=== PATIENT | male | born 1955 | race Caucasian/White ===

== ENCOUNTER 2017-11-19 13:09 | Inpatient (IN) | payer OTHER ==
[2017-11-19] MEDS: SOD CHLORIDE 0.9% 500 ML IV (13:17)
[2017-11-19] MEDS: ASPIRIN 81 MG TAB PO (13:17)
[2017-11-19 13:22] LABS: ADD MAN DIFF? NO
[2017-11-19] MEDS: HEPARIN 1000 UNITS/ML 10 ML INJ IV (13:23)
[2017-11-19 13:26] LABS: BASOPHIL # 0.1 10^3/ul (0.0-0.1); BASOPHILS % 0.6 % (0.0-2.0); EOSINOPHILS # 0.1 10^3/ul (0.0-0.5); EOSINOPHILS % 1.1 % (0.0-7.0); HEMOGLOBIN 13.5 g/dl (14.0-18.0); LYMPHOCYTES # 1.7 10^3/ul (0.8-2.9); MEAN CORPUSCULAR HEMOGLOBIN 31.2 pg (29.0-33.0); MEAN CORPUSCULAR HGB CONC 33.8 g/dl (32.0-37.0); MEAN CORPUSCULAR VOLUME 92.4 fl (82.0-101.0); MEAN PLATELET VOLUME 8.8 fl (7.4-10.4); MONOCYTE # 0.7 10^3/ul (0.3-0.9); MONOCYTES % 5.6 % (0.0-11.0); NEUTROPHIL # 9.5 10^3/ul (1.6-7.5); NEUTROPHILS % 78.1 % (39.0-77.0); PLATELET COUNT 358 10^3/UL (140-415); RED BLOOD COUNT 4.33 10^6/ul (4.70-6.10); RED CELL DISTRIBUTION WIDTH 13.5 % (11.5-14.5)
[2017-11-19 13:26] LABS: WHITE BLOOD COUNT 12.1 10^3/ul (4.8-10.8)
[2017-11-19] MEDS ORDERED: MIDAZOLAM 1 MG/ML 2 ML INJ ×2 (13:32→14:34)
[2017-11-19] MEDS ORDERED: IODIXANOL LOCM 100 ML BTL (13:32)
[2017-11-19] MEDS ORDERED: HEPARIN 1000 UNITS/ML 10 ML INJ (13:32)
[2017-11-19] MEDS ORDERED: IODIXANOL LOCM 50 ML BTL (13:32)
[2017-11-19] MEDS ORDERED: LIDOCAINE 1% (MDV) 20 ML INJ (13:32)
[2017-11-19] MEDS ORDERED: NITROGLYCERIN (IC) 100 MCG/ML INJ (13:33)
[2017-11-19] MEDS ORDERED: VERAPAMIL 5 MG INJ (13:33)
[2017-11-19] MEDS ORDERED: FENTAnyl 50 MCG/ML VIAL (13:33)
[2017-11-19 13:45] LABS: ALANINE AMINOTRANSFERASE 27 IU/L (13-69); ALBUMIN 4.1 g/dl (3.3-4.9); ALBUMIN/GLOBULIN RATIO 1.41; ALKALINE PHOSPHATASE 100 IU/L (42-121); ANION GAP 15 (8-16); ASPARTATE AMINO TRANSFERASE 25 IU/L (15-46); BLOOD UREA NITROGEN 22 mg/dl (7-20); CALCIUM 8.9 mg/dl (8.4-10.2); CARBON DIOXIDE 25 mmol/L (21-31); CHLORIDE 101 mmol/L (97-110); CREATININE 0.86 mg/dl (0.61-1.24); GLUCOSE 178 mg/dl (70-220); INR 0.84; LIPASE 97 U/L (23-300); POTASSIUM 4.2 mmol/L (3.5-5.1); PROTIME 11.6 Sec (11.9-14.9); PT RATIO 0.9; SODIUM 137 mmol/L (135-144)
[2017-11-19 13:57] LABS: B-TYPE NATRIURETIC PEPTIDE 75 PG/ML (0-125)
[2017-11-19 13:58] LABS: TROPONIN-I < 0.012 ng/ml (0.00-0.12)
[2017-11-19] MEDS: EPTIFIBATIDE 100 ML IV (15:24)
[2017-11-19] MEDS ORDERED: morphine 2 MG INJ IV (15:30)
[2017-11-19] MEDS ORDERED: ZOLPIDEM 5 MG TAB PO (15:30)
[2017-11-19] MEDS ORDERED: TICAGRELOR 90 MG TABLET (15:33)
[2017-11-19] MEDS ORDERED: HEPARIN 1000 UNITS/ML 10 ML INJ IV ×2 (17:00→18:00)
[2017-11-19] MEDS: SOD CHLORIDE 0.9% 1,000 ML IV ×2 (17:17→17:29)
[2017-11-19 17:38] LABS: ADD MAN DIFF? NO
[2017-11-19 17:40] LABS: BASOPHIL # 0.1 10^3/ul (0.0-0.1); BASOPHILS % 0.5 % (0.0-2.0); EOSINOPHILS % 0.2 % (0.0-7.0); HEMATOCRIT 39.1 % (42.0-52.0); HEMOGLOBIN 13.6 g/dl (14.0-18.0); LYMPHOCYTES # 1.2 10^3/ul (0.8-2.9); LYMPHOCYTES % 9.7 % (15.0-51.0); MEAN CORPUSCULAR HEMOGLOBIN 32.2 pg (29.0-33.0); MEAN CORPUSCULAR HGB CONC 34.8 g/dl (32.0-37.0); MEAN CORPUSCULAR VOLUME 92.4 fl (82.0-101.0); MEAN PLATELET VOLUME 8.4 fl (7.4-10.4); MONOCYTE # 0.6 10^3/ul (0.3-0.9); MONOCYTES % 4.7 % (0.0-11.0); NEUTROPHIL # 10.7 10^3/ul (1.6-7.5); NEUTROPHILS % 84.5 % (39.0-77.0); PLATELET COUNT 346 10^3/UL (140-415); RED BLOOD COUNT 4.23 10^6/ul (4.70-6.10); RED CELL DISTRIBUTION WIDTH 13.5 % (11.5-14.5)
[2017-11-19 17:40] LABS: WHITE BLOOD COUNT 12.6 10^3/ul (4.8-10.8)
[2017-11-19] MEDS: LISINOPRIL 10 MG TAB PO (17:44)
[2017-11-19] MEDS: HEPARIN 25000 UNITS/250 ML 250 ML IV (18:27)
[2017-11-19] MEDS: LORAZEPAM 2 MG INJ IV (19:56)
[2017-11-19] MEDS: NICOTINE (21 MG/24 HR) PATCH TRANSDERM (19:57)
[2017-11-19 20:17] LABS: CREATINE KINASE 292 IU/L (23-200)
[2017-11-19 20:30] LABS: CK INDEX 2.4; TROPONIN-I 0.081 ng/ml (0.00-0.12)
[2017-11-19 20:58] LABS: CK-MB 6.99 ng/ml (0.0-2.4)
[2017-11-19] MEDS: ATORVASTATIN 80 MG TAB PO (21:15)
[2017-11-19] MEDS: TICAGRELOR 90 MG TABLET PO (21:22)
[2017-11-20 01:13] LABS: CREATINE KINASE 98 IU/L (23-200)
[2017-11-20 01:14] LABS: PARTIAL THROMBOPLASTIN TIME 56.2 Sec (25.0-35.0)
[2017-11-20 01:26] LABS: CK INDEX 3.3
[2017-11-20 01:35] LABS: CK-MB 3.28 ng/ml (0.0-2.4)
[2017-11-20 01:38] LABS: TROPONIN-I 0.541 ng/ml (0.00-0.12)
[2017-11-20] MEDS: LORAZEPAM 2 MG INJ IV ×2 (02:00→08:11)
[2017-11-20 05:06] LABS: ADD MAN DIFF? NO
[2017-11-20 05:07] LABS: BASOPHIL # 0.1 10^3/ul (0.0-0.1); BASOPHILS % 0.4 % (0.0-2.0); EOSINOPHILS # 0.3 10^3/ul (0.0-0.5); HEMATOCRIT 33.6 % (42.0-52.0); HEMOGLOBIN 11.9 g/dl (14.0-18.0); LYMPHOCYTES % 14.1 % (15.0-51.0); MEAN CORPUSCULAR HEMOGLOBIN 32.1 pg (29.0-33.0); MEAN CORPUSCULAR HGB CONC 35.4 g/dl (32.0-37.0); MEAN CORPUSCULAR VOLUME 90.6 fl (82.0-101.0); MEAN PLATELET VOLUME 9.1 fl (7.4-10.4); MONOCYTE # 1.2 10^3/ul (0.3-0.9); MONOCYTES % 8.3 % (0.0-11.0); NEUTROPHIL # 10.4 10^3/ul (1.6-7.5); NEUTROPHILS % 74.6 % (39.0-77.0); PLATELET COUNT 308 10^3/UL (140-415); RED BLOOD COUNT 3.71 10^6/ul (4.70-6.10); RED CELL DISTRIBUTION WIDTH 13.5 % (11.5-14.5)
[2017-11-20 05:34] LABS: BLOOD UREA NITROGEN 16 mg/dl (7-20); CALCIUM 8.5 mg/dl (8.4-10.2); CHOL/HDL RATIO 2.5 RATIO; CHOLESTEROL 133 mg/dl (100-200); CREATININE 0.75 mg/dl (0.61-1.24); GLUCOSE 100 mg/dl (70-220); HDL CHOLESTEROL 53 mg/dl (30-78); LDL CHOLESTEROL,CALCULATED 69 mg/dl; POTASSIUM 4.2 mmol/L (3.5-5.1); SODIUM 134 mmol/L (135-144); TRIGLYCERIDES 55 mg/dl (0-149)
[2017-11-20 06:26] LABS: ANION GAP 15 (8-16); CARBON DIOXIDE 22 mmol/L (21-31)
[2017-11-20 06:30] LABS: CHLORIDE 101 mmol/L (97-110)
[2017-11-20] MEDS: LISINOPRIL 10 MG TAB PO (08:10)
[2017-11-20] MEDS: NICOTINE (21 MG/24 HR) PATCH TRANSDERM (08:11)
[2017-11-20] MEDS: ASPIRIN (EC) 81 MG TAB PO (08:11)
[2017-11-20] MEDS: TICAGRELOR 90 MG TABLET PO (08:12)
[2017-11-22] MEDS ORDERED: EPTIFIBATIDE 20 ML (15:40)
[2017-11-22] MEDS ORDERED: EPTIFIBATIDE 100 ML IV (15:40)
== END 2017-11-20 11:55 | disposition home or self-care (01) | DRG 251 ==
LOC: E/R 13:09 → ICU 13:54
PROC: 02703ZZ Dilation of Coronary Artery, One Artery, Percutaneous Approach (ICD-10-PCS; principal; 2017-11-19 13:00)
PROC: 3E033PZ Introduction of Platelet Inhibitor into Peripheral Vein, Percutaneous Approach (ICD-10-PCS; 2017-11-19 13:00)
DX: I21.19 ST elevation (STEMI) myocardial infarction involving other coronary artery of inferior wall (principal); I10 Essential (primary) hypertension; E78.5 Hyperlipidemia, unspecified; F17.210 Nicotine dependence, cigarettes, uncomplicated; Z79.82 Long term (current) use of aspirin
CPT/HCPCS: 36415; 71045; 80048; 80053; 80061; 82550; 82553; 83690; 83880; 84484; 85025; 85610; 85730; 87081; 93005; 93306; 96365; 96375; 99291-25